=== PATIENT | male | born 1940 ===

== ENCOUNTER 2018-01-26 09:53 | Day surgery (SDC) | payer MEDICARE ==
[~2018-01-26] VITALS: Ht 175.3 cm; Wt 102.5 kg
[2018-01-26] MEDS ORDERED: SODIUM CHLORIDE 0.9% 1,000 ML IV SCH (10:36)
[2018-01-26 10:50] VITALS: BP 171/67
[2018-01-26] MEDS ORDERED: CEFAZOLIN PMX 1GM/50ML 50 ML IVPB ONE (11:00)
[2018-01-26] MEDS ORDERED: METO25TA91 PO (11:03)
[2018-01-26] MEDS ORDERED: LOSA25TA5 PO (11:03)
[2018-01-26] MEDS ORDERED: SIMV40TA3 PO (11:03)
[2018-01-26] MEDS ORDERED: PANT20TA3 PO (11:03)
[2018-01-26] MEDS ORDERED: INSU100V8 SQ (11:03)
[2018-01-26] MEDS ORDERED: CEFAZOLIN PMX 1GM/50ML 50 ML ONE (11:58)
[2018-01-26] MEDS ORDERED: FENTANYL PF 100 MCG/2ML ONE ×2 (11:58→12:25)
[2018-01-26] MEDS ORDERED: CEFAZOLIN 1,000 MG ONE (11:58)
[2018-01-26] MEDS ORDERED: LIDOCAINE 2%, 50ML ONE (11:58)
[2018-01-26] MEDS ORDERED: MIDAZOLAM 1 MG/ML, 2ML ONE (11:58)
== END 2018-01-26 15:45 | disposition home or self-care (01) ==
LOC: CACL 09:53
PROVIDERS: ATTEND Internal Medicine Cardiovascular Disease
DX: Z45.010 Encounter for checking and testing of cardiac pacemaker pulse generator [battery] (principal); I44.2 Atrioventricular block, complete; E11.9 Type 2 diabetes mellitus without complications; I10 Essential (primary) hypertension; E78.5 Hyperlipidemia, unspecified; Z95.0 Presence of cardiac pacemaker; Z79.4 Long term (current) use of insulin; Z79.899 Other long term (current) drug therapy; Z91.010 Allergy to peanuts; Z72.89 Other problems related to lifestyle
CPT/HCPCS: 33228; 99156; 99157; C1785; J0690; J2250; J3010